=== PATIENT | female | born 1955 | race Caucasian/White ===

== ENCOUNTER → 2020-12-22 | Outpatient (CLI) | payer OTHER ==
[~2020-12-22] VITALS: Ht 162.6 cm; Wt 64.0 kg
[~2020-12-22] MED LIST: BACLOFEN 10MG T10 MG PO; CALCIUM 500 +1 EAC6 PO; FENTANYL1 EAC7 TRANSDERM; LISINOPRIL20 MG PO; MAGNESIUM400 MG PO; OMEPRAZOLE 20 M20 M1 PO; POTASSIUM99 M1 PO; PROBIOTIC1 EAC7 PO; TRAMADOL 50 MG50 MG PO; VITAMIN C100 MG PO; ZOCOR 10 MG TAB10 M1 PO
[2020-12-22 14:56] VITALS: BP 122/76
--- NOTE | 2020-12-22 15:27 | NUR ---
Pain Clinic Assessment: 1. History of Osteoarthritis: FINGERS HIPS KNEES RIGHT FOOT History of Rheumatoid Arthritis: 2. Height: 5 ft. 4 in. 162.6 cm. Weight: 141.0 lb. oz. 63.957 kg. Patient's BMI: 24.2 3. Vital Signs: BP: 122/76 Pulse: 80 Resp: 14 Temp: 02 Sat: 100 ECG Mon: 4. Pain Intensity: 3 5. Fall Risk: Dizziness: N Needs help standing or walking: Y Fallen in the last 3 months: N Fall risk comments: 6. Patient on Blood Thinner: None 7. History of Hypertension: N 8. Opioid Therapy greater than 6 weeks: Opiate Contract Signed: 9. Risk Assessment Tool Provided: 1 LOW RISK 10. Functional Assessment Tool: / 11. Recreational Drug Use: Current within past 3 mos Drug Type: MARIJUANA Tobacco Use: Former Smoker Tobacco Type: Cigarettes Amount or Packs/day: How Many Years: Alcohol Use: No Frequency: Quant:
== END ==
LOC: PAIN 07:59
PROVIDERS: ATTEND Anesthesiology Pain Medicine
DX: C34.80 Malignant neoplasm of overlapping sites of unspecified bronchus and lung (principal); R07.9 Chest pain, unspecified; I10 Essential (primary) hypertension; K86.2 Cyst of pancreas; Z88.8 Allergy status to other drugs, medicaments and biological substances

== ENCOUNTER → 2021-02-02 | Outpatient (CLI) | payer OTHER ==
[~2021-02-02] VITALS: Ht 162.6 cm; Wt 67.5 kg
[~2021-02-02] MED LIST changes: +LISINOPRIL10 MG PO
[2021-02-02 10:45] VITALS: BP 134/78
--- NOTE | 2021-02-02 10:52 | NUR ---
Pain Clinic Assessment: 1. History of Osteoarthritis: FINGERS HIPS KNEES RIGHT FOOT History of Rheumatoid Arthritis: 2. Height: 5 ft. 4 in. 162.6 cm. Weight: 148.8 lb. oz. 67.495 kg. Patient's BMI: 25.5 3. Vital Signs: BP: 134/78 Pulse: 79 Resp: 14 Temp: 02 Sat: 100 ECG Mon: 4. Pain Intensity: 3 5. Fall Risk: Dizziness: N Needs help standing or walking: Y Fallen in the last 3 months: N Fall risk comments: 6. Patient on Blood Thinner: None 7. History of Hypertension: N 8. Opioid Therapy greater than 6 weeks: Opiate Contract Signed: 9. Risk Assessment Tool Provided: 1 LOW RISK 10. Functional Assessment Tool: / 11. Recreational Drug Use: Current within past 3 mos Drug Type: MARIJUANA Tobacco Use: Former Smoker Tobacco Type: Amount or Packs/day: How Many Years: Alcohol Use: No Frequency: Quant:
== END ==
LOC: PAIN 10:12
PROVIDERS: ATTEND Anesthesiology Pain Medicine
DX: C34.90 Malignant neoplasm of unspecified part of unspecified bronchus or lung (principal); C79.31 Secondary malignant neoplasm of brain; K21.9 Gastro-esophageal reflux disease without esophagitis; Z87.891 Personal history of nicotine dependence; Z88.8 Allergy status to other drugs, medicaments and biological substances; Z79.899 Other long term (current) drug therapy

== ENCOUNTER → 2021-04-08 | Outpatient (CLI) | payer OTHER ==
[~2021-04-08] VITALS: Ht 162.6 cm; Wt 63.4 kg
[2021-04-08 13:31] VITALS: BP 140/83
--- NOTE | 2021-04-08 13:39 | NUR ---
Pain Clinic Assessment: 1. History of Osteoarthritis: FINGERS HIPS KNEES RIGHT FOOT History of Rheumatoid Arthritis: 2. Height: 5 ft. 4 in. 162.6 cm. Weight: 139.8 lb. oz. 63.413 kg. Patient's BMI: 24.0 3. Vital Signs: BP: 140/83 Pulse: 84 Resp: 16 Temp: 02 Sat: 100 ECG Mon: 4. Pain Intensity: 4 5. Fall Risk: Dizziness: N Needs help standing or walking: Y Fallen in the last 3 months: Y Fall risk comments: 6. Patient on Blood Thinner: None 7. History of Hypertension: N 8. Opioid Therapy greater than 6 weeks: Opiate Contract Signed: 9. Risk Assessment Tool Provided: 1 LOW RISK 10. Functional Assessment Tool: 11. Recreational Drug Use: Past greater than 3 mos Drug Type: Tobacco Use: Former Smoker Tobacco Type: Amount or Packs/day: How Many Years: Alcohol Use: No Frequency: Quant:
== END | disposition home or self-care (01) ==
LOC: PAIN 03-26 09:15
PROVIDERS: ATTEND Clinical Nurse Specialist Adult Health
DX: R10.13 Epigastric pain (principal); Z79.899 Other long term (current) drug therapy; Z88.8 Allergy status to other drugs, medicaments and biological substances

== ENCOUNTER → 2021-05-04 | Outpatient (CLI) | payer OTHER ==
[~2021-05-04] VITALS: Ht 162.6 cm; Wt 65.0 kg
[~2021-05-04] MED LIST changes: +FENTANYL1 EACH TRANSDERM
[2021-05-04 12:47] VITALS: BP 122/71
--- NOTE | 2021-05-04 12:58 | NUR ---
Pain Clinic Assessment: 1. History of Osteoarthritis: FINGERS HIPS KNEES RIGHT FOOT History of Rheumatoid Arthritis: Not Applicable 2. Height: 5 ft. 4 in. 162.6 cm. Weight: 143.2 lb. oz. 64.955 kg. Patient's BMI: 24.6 3. Vital Signs: BP: 122/71 Pulse: 77 Resp: 14 Temp: 02 Sat: 100 ECG Mon: 4. Pain Intensity: 4 5. Fall Risk: Dizziness: N Needs help standing or walking: Y Fallen in the last 3 months: N Fall risk comments: 6. Patient on Blood Thinner: None 7. History of Hypertension: N 8. Opioid Therapy greater than 6 weeks: Opiate Contract Signed: 9. Risk Assessment Tool Provided: 1 LOW RISK 10. Functional Assessment Tool: 11. Recreational Drug Use: Past greater than 3 mos Drug Type: Tobacco Use: Former Smoker Tobacco Type: Amount or Packs/day: How Many Years: Alcohol Use: No Frequency: Quant:
== END ==
LOC: PAIN 09:08
PROVIDERS: ATTEND Clinical Nurse Specialist Adult Health
DX: C34.90 Malignant neoplasm of unspecified part of unspecified bronchus or lung (principal); C79.31 Secondary malignant neoplasm of brain; K21.00 Gastro-esophageal reflux disease with esophagitis, without bleeding; I69.354 Hemiplegia and hemiparesis following cerebral infarction affecting left non-dominant side; M79.18 Myalgia, other site; Z79.899 Other long term (current) drug therapy; Z88.8 Allergy status to other drugs, medicaments and biological substances